=== PATIENT | female | born 1985 | race African-American/Black ===

== ENCOUNTER 2016-04-10 23:29 | Emergency (ER) | payer OTHER ==
[2016-04-10] MEDS ORDERED: OPTIRAY 350 100 ML VIAL HMH IV ONE (23:30)
[2016-04-11] MEDS ORDERED: KETOROLAC 30 MG/ML VIAL ONE (01:26)
[2016-04-11] MEDS ORDERED: DILAUDID 1 MG/ML AMP ONE (02:28)
== END 2016-04-11 04:08 | disposition home or self-care (01) ==
LOC: ER 23:29
DX: R10.9 Unspecified abdominal pain (principal); Z79.899 Other long term (current) drug therapy; F17.210 Nicotine dependence, cigarettes, uncomplicated
CPT/HCPCS: 36415; 74177; 80053; 81001; 83690; 85025; 96374; 96375

== ENCOUNTER 2016-04-16 20:41 | Emergency (ER) | payer OTHER | END 2016-04-17 01:12 | disposition home or self-care (01) | LOC: ER 20:41 | DX: J10.1 Influenza due to other identified influenza virus with other respiratory manifestations (principal); R50.9 Fever, unspecified; J31.0 Chronic rhinitis; Z79.899 Other long term (current) drug therapy; F17.210 Nicotine dependence, cigarettes, uncomplicated | CPT/HCPCS: 36415; 80053; 81003; 83690; 84703; 85025; 87804 ==